=== PATIENT | female | born 1975 | race Hispanic/Latino ===

== ENCOUNTER 2018-06-04 10:23 | Outpatient (CLI) | payer OTHER ==
--- NOTE | 2018-06-04 12:33 | ULT ---
SOFT TISSUE SONOGRAM RIGHT BUTTOCKS: HISTORY: Injury. Mass. Right buttocks pain. FINDINGS: Sonographic evaluation of the subcutaneous tissues at the right buttocks in the region of prior traum a and pain shows a large heterogeneous complex partially cystic mass measuring up to 10.6 cm length x 7.4 cm width x 2.5 cm depth. No evidence of invasion of the underlying musculature. IMPRESSION: Large heterogeneous complex cystic lesion within the subcutaneous tissue at the right buttocks is con sistent with a resolving hematoma in the setting of prior trauma. POS: [facility]
== END 2018-06-04 10:24 | disposition home or self-care (01) ==
LOC: BICULT 10:23
PROVIDERS: ATTEND Family Medicine
DX: S33.5XXD Sprain of ligaments of lumbar spine, subsequent encounter (principal); S23.3XXD Sprain of ligaments of thoracic spine, subsequent encounter; S13.4XXD Sprain of ligaments of cervical spine, subsequent encounter; S30.0XXD Contusion of lower back and pelvis, subsequent encounter; M79.652 Pain in left thigh; M79.651 Pain in right thigh; L98.9 Disorder of the skin and subcutaneous tissue, unspecified
CPT/HCPCS: 76999